=== PATIENT | female | born 1955 | race Caucasian/White ===

== ENCOUNTER 2017-05-22 14:14 | Emergency (ER) | payer BC ==
[2017-05-22 15:53] VITALS: BP 132/74
--- NOTE | 2017-05-22 16:09 | UC ---
Skin Complaint HPI - HPI Summary HPI Summary: 62 y/o female presents to the urgent care c/o redness and swelling on her RT arm s/p bee sting 3 days ago. 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 Pain is mild 2/10 with itchiness. Pt denies HX of MRSA, fever, SOB, chest pain, N/V/D - History of Current Complaint Chief Complaint: UCSkin Time Seen by Provider: 05/22/17 16:00 Stated Complaint: RIGHT ARM SKIN COMPLAINT Hx Obtained From: Patient Hx Last Menstrual Period: menopausal Onset/Duration: Sudden Onset, Lasting Days - 3 days Skin Exposure Onset/Duration: Days Ago Timing: Constant Onset Severity: Mild Current Severity: Moderate Pain Intensity: 2 Pain Scale Used: 0-10 Numeric Location: Discrete - RT forearm Character: Swelling, Pruritus, Pain, Redness Aggravating Factor(s): Touch Alleviating Factor(s): Nothing Associated Signs & Symptoms: Positive: Tenderness. Negative: Fever, Chills, Throat Tightening, Drainage Related History: Possible Reaction to: Insect - Allergy/Home Medications Allergies/Adverse Reactions: Allergies Allergy/AdvReac Type Severity Reaction Status Date / Time Adhesive Tape AdvReac Rash Verified 05/22/17 15:47 Home Medications: Home Medications Levothyroxine TAB* [Synthroid 150 MCG TAB*] 150 mcg PO DAILY 05/22/17 [History Confirmed 05/22/17] Lisinopril TAB* [Prinivil TAB 10 MG*] 10 mg PO BID 05/22/17 [History Confirmed 05/22/17] Tamoxifen TAB* [Nolvadex 10 MG*] 20 mg PO DAILY 05/22/17 [History Confirmed ] Review of Systems Constitutional: Negative Skin: Rash - RT forearm with rash s/p bee sting Eyes: Negative ENT: Negative Respiratory: Negative Cardiovascular: Negative Gastrointestinal: Negative Genitourinary: Negative Motor: Negative Neurovascular: Negative Musculoskeletal: Negative Neurological: Negative Psychological: Negative Is Patient Immunocompromised?: No All Other Systems Reviewed And Are Negative: Yes PMH/Surg Hx/FS Hx/Imm Hx Previously Healthy: Yes Endocrine History: Hypothyroidism, Dyslipidemia Cardiovascular History: Hypertension Cancer History: Breast Cancer - s/p B/L mastectomy - Surgical History Surgical History: Yes Surgery Procedure, Year, and Place: left shoulder total replacement, hysterectomy, double mastectomy - Family History Known Family History: Positive: Cardiac Disease, Hypertension, Diabetes - Social History Occupation: Employed Full-time Lives: With Family Alcohol Use: None Substance Use Type: None Smoking Status (MU): Never Smoked Tobacco Physical Exam Triage Information Reviewed: Yes Vital Signs: Initial Vital Signs Temp 98.4 F 05/22/17 15:48 Pulse 85 05/22/17 15:48 Resp 16 05/22/17 15:48 BP 132/74 05/22/17 15:48 Pulse Ox 100 05/22/17 15:48 - Additional Comments Vital Signs Reviewed: Yes General: Well developed, well nourished female, sitting on the examining table w /o any apparent distress. Eye Exam: Normal Eyes: Positive: Conjunctiva Clear - PERRLA< EOMI, fundi grossly normal ENT: Positive: Normal ENT inspection, Hearing grossly normal, Pharynx normal, TMs normal Neck: Positive: Supple, Nontender, No Lymphadenopathy Respiratory: Positive: Chest non-tender,B/L mastectomy, Lungs clear, Normal breath sounds, No respiratory distress Cardiovascular: Positive: RRR, No Murmur, Pulses Normal, Brisk Capillary Refill Abdomen Description: Positive: Nontender, No Organomegaly, Soft. Negative: CVA Tenderness (R), CVA Tenderness (L) Bowel Sounds: Positive: Present Musculoskeletal: Positive: Strength Intact, ROM Intact, No Edema Neurological: Positive: Alert, Muscle Tone Normal Psychological Exam: Normal Skin: Positive: rashes - Positive erythematous patch with indistinct borders in the medial ventral aspect of RT forearm about [id number] in size, warm to touch mild induration in the central bee sting with mild yellowish drainage observed. mild tenderness to palpation Course/Dx - Course Course Of Treatment: 62 y/o female presents to the urgent care c/o redness and swelling on her RT arm s/p bee sting 3 days ago. 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 Pain is mild 2/10 with itchiness. Pt denies HX of MRSA, fever, SOB, chest pain, N/V/ D. Hx obtained. Pt with cellulitis of the RT forearm s/p bee sting. Pt Rx keflex PO and benadryl PO. rash demarcated with a skin marker. Pt advised If redness and swelling doubles in size beyond what was demarcated after 48 hrs of taking antibiotic and fever develops please go to the ER immediately. Pt understood and agreed with D/C instructions. - Differential Diagnoses - Skin Complaint Differential Diagnoses: Abscess, Allergic Reaction, Cellulitis, Contact Dermatitis, Local Allergic Reaction, Lymphadenitis, MRSA, Tick Born Illness, Urticaria - Diagnoses Provider Diagnoses: 1- RT forearm cellulitis s/p bee sting Discharge - Discharge Plan Condition: Stable Disposition: HOME Prescriptions: Cephalexin CAP* [Keflex CAP*] 500 mg PO QID #28 cap diPHENhydraMINE PO* [Benadryl PO 25 MG TAB*] 25 mg PO TID PRN #15 tab PRN Reason: Pruritis Patient Education Materials: Cellulitis (ED) Referrals: [facility] [place] [facility] [place] [facility] [place]] Additional Instructions: 1-Please take full course of Antibiotic. 2- If redness and swelling doubles in size beyond what was demarcated after 48 hrs of taking antibiotic and fever develops please go to the ER immediately. 3-If not improvement of symptoms Please F/u with your PCP in 2 days for further evaluation and treatment.
== END 2017-05-22 16:20 | disposition home or self-care (01) ==
LOC: UCCORT 14:14
DX: T63.441A Toxic effect of venom of bees, accidental (unintentional), initial encounter (principal); L03.113 Cellulitis of right upper limb; I10 Essential (primary) hypertension; E03.9 Hypothyroidism, unspecified; Z91.048 Other nonmedicinal substance allergy status; Z96.612 Presence of left artificial shoulder joint; Z85.3 Personal history of malignant neoplasm of breast; X58.XXXA Exposure to other specified factors, initial encounter
CPT/HCPCS: 99212; G0463

== ENCOUNTER 2019-02-03 14:11 | Emergency (ER) | payer BC ==
[2019-02-03 15:59] VITALS: BP 142/68
--- NOTE | 2019-02-03 16:30 | UC ---
UC General HPI - HPI Summary HPI Summary: pt tripped and fell this am. she has ongoing discomfort to her L forearm area since. - History of Current Complaint Chief Complaint: UCUpperExtremity Stated Complaint: SP FALL-LT WRIST ELBOW PAIN Time Seen by Provider: 02/03/19 16:19 Hx Obtained From: Patient Hx Last Menstrual Period: menopausal Onset/Duration: Sudden Onset Timing: Constant Pain Intensity: 4 Aggravating: movement Associated Signs & Symptoms: Negative: Weakness - Allergy/Home Medications Allergies/Adverse Reactions: Allergies Allergy/AdvReac Type Severity Reaction Status Date / Time Adhesive Tape AdvReac Rash Verified 02/03/19 16:00 PMH/Surg Hx/FS Hx/Imm Hx - Additional Past Medical History Additional PMH: OA Endocrine History: Thyroid Disease Cardiovascular History: Hypertension - Surgical History Surgical History: Yes Surgery Procedure, Year, and Place: left shoulder total replacement, hysterectomy, double mastectomy - Family History Known Family History: Positive: Cardiac Disease, Hypertension, Diabetes - Social History Occupation: Employed Full-time Alcohol Use: None Substance Use Type: None Smoking Status (MU): Never Smoked Tobacco Review of Systems All Other Systems Reviewed And Are Negative: No Musculoskeletal: Negative: Decreased ROM, Edema Neurological: Negative: Weakness, Paresthesia, Numbness Physical Exam Triage Information Reviewed: Yes Appearance: Well-Appearing Vital Signs: Initial Vital Signs Temp 97.4 F 02/03/19 15:53 Pulse 88 02/03/19 15:53 Resp 18 02/03/19 15:53 BP 142/68 02/03/19 15:53 Pulse Ox 100 02/03/19 15:53 Vital Signs Reviewed: Yes Eyes: Positive: Conjunctiva Clear Neck: Positive: Supple Musculoskeletal: Positive: Other: - LUE: shoulder without deformity or tenderness. elbow without deformity or tenderness. superficial abrasion dorsal forearm and foream with mild generalized tenderness but no deformity or instability. wrist and hand are non tender. the arm has full s/v/m function. Neurological: Positive: Alert Psychological: Positive: Age Appropriate Behavior Skin Exam: Normal Diagnostics - Radiology No standard instances Radiology Interpretation Completed By: Radiologist - IMPRESSION: No fracture of the left forearm is noted. Course/Dx - Course Course Of Treatment: PT DECLINED TO HAVE ABRASION CLEANED. LAST TETANUS WAS WITHIN 10 YEARS. NHUNG APPLIED TO L FOREARM BY THIS PA. L HAND HAD FULL S/V/M FUNCTION PRE AND POST NHUNG. - Diagnoses Provider Diagnosis: Strain of left forearm, Abrasion forearm Discharge - Sign-Out/Discharge Documenting (check all that apply): Patient Departure All imaging exams completed and their final reports reviewed: Yes - Discharge Plan Condition: Stable Disposition: HOME Patient Education Materials: Muscle Strain (ED), Abrasion (ED) Referrals: Zhao Hernandez [Primary Care Provider] - If Needed Additional Instructions: WEAR NHNUG NEEDED FOR COMFORT AND REMOVE IT AT BEDTIME. - Billing Disposition and Condition Condition: STABLE Disposition: Home - Attestation Statements Provider Attestation: Per institutional requirements, I have reviewed the chart, however, I was not consulted specifically or made aware of this patient by the midlevel provider. I did not personally evaluate, interact with , or disposition this patient.
== END 2019-02-03 17:07 | disposition home or self-care (01) ==
LOC: UCCORT 14:11
DX: S56.912A Strain of unspecified muscles, fascia and tendons at forearm level, left arm, initial encounter (principal); S50.812A Abrasion of left forearm, initial encounter; W01.0XXA Fall on same level from slipping, tripping and stumbling without subsequent striking against object, initial encounter; Y92.9 Unspecified place or not applicable; I10 Essential (primary) hypertension
CPT/HCPCS: 99212; G0463